=== PATIENT | male | born 1930 | race Caucasian/White ===

== ENCOUNTER 2017-12-15 13:31 | Emergency (ER) | payer MEDICARE, BC ==
[2017-12-15] MEDS ORDERED: Sodium Chloride 0.9% 10 ML Syringe FLUSH PRN (14:32)
--- NOTE | 2017-12-15 14:37 | EDM.PDOC ---
ED HPI GENERAL MEDICAL PROBLEM - General Chief Complaint: Abdominal Pain Stated Complaint: SHARP PAIN ON RT SIDE Time Seen by Provider: 12/15/17 14:12 Source of Information: Reports: Patient, Family, RN Notes Reviewed History Limitations: Reports: No Limitations - History of Present Illness INITIAL COMMENTS - FREE TEXT/NARRATIVE: 86-year-old gentleman presents to the emergency department today following trauma, he fell at home a couple of days ago landed predominantly on his abdomen states the pain has progressively gotten worse presented to the emergency department today for further evaluation. He is specific pain is right upper quadrant area no nausea no vomiting no shortness of breath or chest pain pain is well controlled at rest however any movement or standing up will exacerbate the pain. Right Lower Abdominal Pain Score (Numeric/FACES): 2 - Related Data Allergies Allergy/AdvReac Type Severity Reaction Status Date / Time No Known Allergies Allergy Verified 12/15/17 13:49 Home Meds: Home Meds Aspirin [Adult Low Dose Aspirin EC] 81 mg PO DAILY 12/28/13 [History] Carbidopa/Levodopa [Sinemet Cr 25-100 Tablet] 1.5 each PO TID 12/28/13 [History] Hydrochlorothiazide 50 mg PO DAILY 12/28/13 [History] Lisinopril 40 mg PO DAILY 12/28/13 [History] Multivitamin [Multi Vitamin Daily] 1 each PO DAILY 12/28/13 [History] amLODIPine Besylate [Amlodipine Besylate] 5 mg PO DAILY 12/28/13 [History] Cholecalciferol (Vitamin D3) [Vitamin D] 2,000 unit PO DAILY 12/15/17 [History] Past Medical History HEENT History: Reports: Impaired Vision, Macular Degeneration Cardiovascular History: Reports: Hypertension Other Respiratory History: EMPHYSEMA Gastrointestinal History: Reports: Diverticulosis Neurological History: Reports: Neuropathy, Peripheral, Parkinson's - Past Surgical History Other Neurological Surgeries/Procedures: L FOOT DROP WITH A BRACE Other Musculoskeletal Surgeries/Procedures:: L LOWER LIMB FX Social & Family History - Tobacco Use Smoking Status *Q: Unknown Ever Smoked ED ROS GENERAL - Review of Systems Review Of Systems: See Below Constitutional: Reports: No Symptoms HEENT: Reports: No Symptoms Respiratory: Reports: No Symptoms Cardiovascular: Reports: No Symptoms GI/Abdominal: Reports: Abdominal Pain, Flatus. Denies: Constipation, Diarrhea, Nausea, Vomiting : Reports: No Symptoms Musculoskeletal: Reports: No Symptoms Skin: Reports: No Symptoms Neurological: Reports: No Symptoms ED EXAM, GI/ABD - Physical Exam Exam: See Below Text/Narrative:: General: Elderly male, not in any distress, alert and oriented x3 HEENT: head is atraumatic normocephalic, eyes pupils equal round reactive to light, sclera clear no conjunctivitis appreciated. Ears tympanic membranes clear and campuzano landmarks and light reflex on left, hearing aid in place in the right side. Nose no septal deviation, nares are clear, no blood present. Mouth mucosa is moist and pink no erythema or exudate noted in soft palate, tongue is midline uvula is midline, dentition is intact. Neck: Supple no thyromegaly no tracheal deviation. Nodes: Cervical nodes subclavicular nodes nontender no palpable lymphadenopathy noted. Lungs: clear to auscultation bilaterally with symmetrical respirations, no adventitious noise appreciated. CV: Regular rate and rhythm S1 and S2 appreciated no murmurs rubs or gallops noted. Abdomen: Soft, tenderness to palpation right upper quadrant, no palpable masses or organomegaly appreciated, no distention no guarding bowel sounds are present , . Neuro: Cranial nerves II through XII grossly intact Skin: Warm and dry, intact Extremities: No lower extremity edema appreciated, pedal pulse is +2. Course - Vital Signs Last Recorded V/S: Last Vital Signs Temp 95.2 F L 12/15/17 13:48 Pulse 60 12/15/17 16:21 Resp 14 12/15/17 13:48 BP 100/44 L 12/15/17 16:21 Pulse Ox 95 12/15/17 16:21 - Orders/Labs/Meds Orders: Active Orders 24 hr Category Date Time Status Peripheral IV Care [RC] . DIRECTED Care 12/15/17 14:33 Active Abdomen Pelvis w Cont [CT] Urgent Exams 12/15/17 14:32 Taken UA W/MICROSCOPIC [URIN] Urgent Lab 12/15/17 16:15 Ordered Iopamidol [Isovue-300 (61%)] Med 12/15/17 14:45 Active 57 ml IV . DIRECTED Lactated Ringers [Ringers, Lactated] 1,000 ml Med 12/15/17 14:45 Active IV ASDIRECTED Sodium Chloride 0.9% [Normal Saline] 70 ml Med 12/15/17 14:45 Active IV ASDIRECTED Sodium Chloride 0.9% [Saline Flush] Med 12/15/17 14:32 Active 10 ml FLUSH ASDIRECTED PRN Peripheral IV Insertion Adult [OM.PC] Urgent Oth 12/15/17 14:32 Ordered Medication Orders Lactated Ringer's (Ringers, Lactated) 1,000 mls @ 500 mls/hr IV ASDIRECTED GRISELDA Last Admin: 12/15/17 14:57 Dose: 500 mls/hr Sodium Chloride (Normal Saline) 70 mls @ 3 mls/sec IV ASDIRECTED GRISELDA Last Admin: 12/15/17 15:34 Dose: 3 mls/sec Iopamidol (Isovue-300 (61%)) 57 ml IV . DIRECTED GRISELDA Last Admin: 12/15/17 15:33 Dose: 100 ml Sodium Chloride (Saline Flush) 10 ml FLUSH ASDIRECTED PRN PRN Reason: Keep Vein Open Labs: Laboratory Tests 12/15/17 12/15/17 12/15/17 Range/Units 14:32 14:32 14:32 WBC 7.9 (4.5-11.0) K/uL RBC 4.22 L (4.30-5.90) M/uL Hgb 13.4 (12.0-15.0) g/dL Hct 41.3 (40.0-54.0) % MCV 98 (80-98) fL MCH 32 H (27-31) pg MCHC 32 (32-36) % Plt Count 202 (150-400) K/uL Neut % (Auto) 61 (36-66) % Lymph % (Auto) 24 (24-44) % Bay % (Auto) 12 H (2-6) % Eos % (Auto) 3 (2-4) % Baso % (Auto) 0 (0-1) % Sodium 143 (140-148) mmol/L Potassium 3.6 (3.6-5.2) mmol/L Chloride 106 (100-108) mmol/L Carbon Dioxide 32 (21-32) mmol/L Anion Gap 5.3 (5.0-14.0) mmol/L BUN 23 H (7-18) mg/dL Creatinine 1.3 (0.8-1.3) mg/dL Est Cr Clr Drug Dosing 22.16 mL/min Estimated GFR (MDRD) 52 L (>60) Glucose 116 H (74-106) mg/dL Lactic Acid 1.8 (0.4-2.0) mmol/L Calcium 8.6 (8.5-10.1) mg/dL Total Bilirubin 0.5 (0.2-1.0) mg/dL AST 18 (15-37) U/L ALT 14 (12-78) U/L Alkaline Phosphatase 58 (46-116) U/L Total Protein 6.5 (6.4-8.2) g/dL Albumin 3.2 L (3.4-5.0) g/dL Globulin 3.3 (2.3-3.5) g/dL Albumin/Globulin Ratio 1.0 L (1.2-2.2) Urine Color Urine Appearance Urine pH (4.5-8.0) Ur Specific Central (1.008-1.030) Urine Protein (NEGATIVE) mg/dL Urine Glucose (UA) (NEGATIVE) mg/dL Urine Ketones (NEGATIVE) mg/dL Urine Occult Blood (NEGATIVE) Urine Nitrite (NEGAITVE) Urine Bilirubin (NEGATIVE) Urine Urobilinogen (NORMAL) mg/dL Ur Leukocyte Esterase (NEGATIVE) Urine RBC (0-5) Urine WBC (0-5) Ur Epithelial Cells Amorphous Sediment Urine Bacteria Urine Mucus 12/15/17 Range/Units 16:15 WBC (4.5-11.0) K/uL RBC (4.30-5.90) M/uL Hgb (12.0-15.0) g/dL Hct (40.0-54.0) % MCV (80-98) fL MCH (27-31) pg MCHC (32-36) % Plt Count (150-400) K/uL Neut % (Auto) (36-66) % Lymph % (Auto) (24-44) % Bay % (Auto) (2-6) % Eos % (Auto) (2-4) % Baso % (Auto) (0-1) % Sodium (140-148) mmol/L Potassium (3.6-5.2) mmol/L Chloride (100-108) mmol/L Carbon Dioxide (21-32) mmol/L Anion Gap (5.0-14.0) mmol/L BUN (7-18) mg/dL Creatinine (0.8-1.3) mg/dL Est Cr Clr Drug Dosing mL/min Estimated GFR (MDRD) (>60) Glucose (74-106) mg/dL Lactic Acid (0.4-2.0) mmol/L Calcium (8.5-10.1) mg/dL Total Bilirubin (0.2-1.0) mg/dL AST (15-37) U/L ALT (12-78) U/L Alkaline Phosphatase (46-116) U/L Total Protein (6.4-8.2) g/dL Albumin (3.4-5.0) g/dL Globulin (2.3-3.5) g/dL Albumin/Globulin Ratio (1.2-2.2) Urine Color Yellow Urine Appearance Clear Urine pH 7.0 (4.5-8.0) Ur Specific Central 1.005 L (1.008-1.030) Urine Protein Negative (NEGATIVE) mg/dL Urine Glucose (UA) Normal (NEGATIVE) mg/dL Urine Ketones Negative (NEGATIVE) mg/dL Urine Occult Blood Negative (NEGATIVE) Urine Nitrite Negative (NEGAITVE) Urine Bilirubin Negative (NEGATIVE) Urine Urobilinogen Normal (NORMAL) mg/dL Ur Leukocyte Esterase Moderate (NEGATIVE) Urine RBC 0-5 (0-5) Urine WBC 0-5 (0-5) Ur Epithelial Cells Rare Amorphous Sediment Not seen Urine Bacteria Not seen Urine Mucus Not seen Meds: Medications Generic Name Dose Route Start Last Admin Trade Name Freq PRN Reason Stop Dose Admin Lactated Ringer's 1,000 mls @ 500 mls/hr 12/15/17 14:45 12/15/17 14:57 Ringers, Lactated IV 500 mls/hr ASDIRECTED GRISELDA Administration Sodium Chloride 70 mls @ 3 mls/sec 12/15/17 14:45 12/15/17 15:34 Normal Saline IV 3 mls/sec ASDIRECTED GRISELDA Administration Iopamidol 57 ml 12/15/17 14:45 12/15/17 15:33 Isovue-300 (61%) IV 100 ml . DIRECTED GRISELDA Administration Sodium Chloride 10 ml 12/15/17 14:32 Saline Flush FLUSH ASDIRECTED PRN Keep Vein Open Discontinued Medications Generic Name Dose Route Start Last Admin Trade Name Freq PRN Reason Stop Dose Admin Sodium Chloride 10 ml 12/15/17 14:40 12/15/17 15:34 Saline Flush FLUSH 12/15/17 14:41 10 ml ONETIME ONE Administration Departure - Departure Time of Disposition: 16:50 Disposition: Home, Self-Care 01 Condition: Good Clinical Impression: Abdominal wall pain - Discharge Information Referrals: Sola Trotter MD [Primary Care Provider] - Forms: ED Department Discharge Additional Instructions: Continue to use Aleve as needed for pain control, Please followup with your primary care provider in 3-5 days if not better, please call return to the emergency department with worsening of symptoms. - My Orders Last 24 Hours: My Active Orders 12/15/17 14:32 Abdomen Pelvis w Cont [CT] Urgent Sodium Chloride 0.9% [Saline Flush] 10 ml FLUSH ASDIRECTED PRN Peripheral IV Insertion Adult [OM.PC] Urgent 12/15/17 14:33 Peripheral IV Care [RC] . DIRECTED 12/15/17 14:45 Iopamidol [Isovue-300 (61%)] 57 ml IV . DIRECTED Lactated Ringers [Ringers, Lactated] 1,000 ml IV ASDIRECTED Sodium Chloride 0.9% [Normal Saline] 70 ml IV ASDIRECTED 12/15/17 16:15 UA W/MICROSCOPIC [URIN] Urgent - Assessment/Plan Last 24 Hours: My Active Orders 12/15/17 14:32 Abdomen Pelvis w Cont [CT] Urgent Sodium Chloride 0.9% [Saline Flush] 10 ml FLUSH ASDIRECTED PRN Peripheral IV Insertion Adult [OM.PC] Urgent 12/15/17 14:33 Peripheral IV Care [RC] . DIRECTED 12/15/17 14:45 Iopamidol [Isovue-300 (61%)] 57 ml IV . DIRECTED Lactated Ringers [Ringers, Lactated] 1,000 ml IV ASDIRECTED Sodium Chloride 0.9% [Normal Saline] 70 ml IV ASDIRECTED 12/15/17 16:15 UA W/MICROSCOPIC [URIN] Urgent Plan: Assessment Acuity = acute Site and laterality = abdominal wall pain Etiology = secondary to fall Manifestations = none Location of injury = Home Lab values = CBC, CMP, lactic acid, urinalysis all within normal limits CT scan demonstrates no acute process Plan I did review lab work and CT scan results with him he is going to use Aleve as needed for pain control follow up with primary care 3-5 days if not better This note was dictated using [email or web address] voice recognition software please call with any questions on syntax or grammar.
[2017-12-15] MEDS: Lactated Ringers 1,000 ML IV SCH (14:57)
[2017-12-15] MEDS: Iopamidol 612 MG/ML 100 ML Bottle IV SCH (15:33)
[2017-12-15] MEDS: Sodium Chloride 0.9% 10 ML Syringe FLUSH ONE (15:34)
== END 2017-12-15 17:08 | disposition home or self-care (01) ==
LOC: JP.ED 13:31
DX: R10.9 Unspecified abdominal pain (principal); I10 Essential (primary) hypertension; Z79.82 Long term (current) use of aspirin; Z79.899 Other long term (current) drug therapy; W19.XXXA Unspecified fall, initial encounter; Y92.009 Unspecified place in unspecified non-institutional (private) residence as the place of occurrence of the external cause
CPT/HCPCS: 36415; 74177; 80053; 81001; 83605; 85025; 96360; 96361; 99284; J7030; J7050; J7120; Q9967